=== PATIENT | male | born 1930 | race Asian ===

== ENCOUNTER 2017-05-09 17:43 | Emergency (ER) | payer OTHER ==
[2017-05-09 17:49] VITALS: BP 123/75; PULSE 82; TEMP 97.4; BMI 22.8
[2017-05-09] MEDS ORDERED: IBUPROFEN 400 MG TABLET (FP) PO ONE ×2 (18:10→18:16)
[2017-05-09] MEDS ORDERED: SULFAMETHOXAZOLE/TRIMETHOPRIM 800MG/160MG D.S. TABLET ONE (18:10)
[2017-05-09] MEDS ORDERED: SULFAMETHOXAZOLE/TRIMETHOPRIM 800MG/160MG D.S. TABLET PO ONE (18:15)
--- NOTE | 2017-05-09 18:15 | PDOC ---
History of Present Illness <Mariama Navarro - Last Filed: 05/09/17 18:11> - General History Source: Patient, Old Records Exam Limitations: No Limitations - History of Present Illness Initial Comments: 05/09/17 18:16 The patient is an 87 year old male, accompanied by son, with a past medical history of BPH who presents to the emergency department with a left buttox abcess. The patient states that he first noticed the abscess 4 days ago. The patient states that he has been unable to lie down comfortably secondary to his abscess. <Elvis Barboza - Last Filed: 05/09/17 18:17> - General Chief Complaint: Abscess Boil Stated Complaint: ABSCESS TO BUTTOCK Time Seen by Provider: 05/09/17 17:51 Past History - Past Medical History Anemia: No Asthma: No Cancer: No Cardiac Disorders: No CVA: No COPD: No CHF: No Dementia: No Diabetes: No GI Disorders: No Disorders: Yes (BPH) HTN: No Hypercholesterolemia: No Liver Disease: No Seizures: No Thyroid Disease: No - Surgical History Abdominal Surgery: No Appendectomy: No Cardiac Surgery: No Cholecystectomy: No Lung Surgery: No Neurologic Surgery: No Orthopedic Surgery: Yes (Bilateral knee replacement) - Immunization History Immunization Up to Date: No - Suicide/Smoking/Psychosocial Hx Smoking History: Never smoked Have you smoked in the past 12 months: No Information on smoking cessation initiated: No Hx Alcohol Use: No Drug/Substance Use Hx: No Substance Use Type: None Hx Substance Use Treatment: No <Mariama Navarro - Last Filed: 05/09/17 18:11> <Elvis Barboza - Last Filed: 05/09/17 18:17> - Past Medical History Allergies/Adverse Reactions: Allergies Allergy/AdvReac Type Severity Reaction Status Date / Time No Known Allergies Allergy Verified 05/09/17 17:45 Home Medications: Ambulatory Orders Dutasteride [Avodart] 0.5 mg PO HS 05/09/17 Sulfamethoxazole/Trimethoprim [Bactrim Ds Tablet] 1 each PO BID #14 tablet 05/09 Review of Systems - Review of Systems Able to Perform ROS?: Yes Comments:: 05/09/17 18:16 GENERAL/CONSTITUTIONAL: No fever or chills. No weakness. HEAD, EYES, EARS, NOSE AND THROAT: No change in vision. No ear pain or discharge. No sore throat. GASTROINTESTINAL: No nausea, vomiting, diarrhea or constipation. GENITOURINARY: No dysuria, frequency, or change in urination. CARDIOVASCULAR: No chest pain or shortness of breath. RESPIRATORY: No cough, wheezing, or hemoptysis. MUSCULOSKELETAL: No joint or muscle swelling or pain. No neck or back pain. SKIN: No rash NEUROLOGIC: No headache, vertigo, loss of consciousness, or change in strength/ sensation. ENDOCRINE: No increased thirst. No abnormal weight change. HEMATOLOGIC/LYMPHATIC: No anemia, easy bleeding, or history of blood clots. ALLERGIC/IMMUNOLOGIC: (+) No hives or skin allergy. Left buttox abcess <Elvis Barboza - Last Filed: 05/09/17 18:17> *Physical Exam - Vital Signs Last Vital Signs Temp Pulse Resp BP Pulse Ox 97.4 F L 82 18 123/75 97 05/09/17 17:44 05/09/17 17:44 05/09/17 17:44 05/09/17 17:44 05/09/17 17:44 <Mariama Navarro - Last Filed: 05/09/17 18:11> - Vital Signs Last Vital Signs Temp Pulse Resp BP Pulse Ox 97.4 F L 82 18 123/75 97 05/09/17 17:44 05/09/17 17:44 05/09/17 17:44 05/09/17 17:44 05/09/17 17:44 - Physical Exam Comments: 05/09/17 18:17 GENERAL: Awake, alert, and fully oriented, in no acute distress HEAD: No signs of trauma EYES: PERRLA, EOMI, sclera anicteric, conjunctiva clear ENT: Auricles normal inspection, nares patent, Moist mucosa NECK: Normal ROM, supple, no lymphadenopathy, JVD, or masses LUNGS: Breath sounds equal, clear to auscultation bilaterally. No wheezes, and no crackles HEART: Regular rate and rhythm, normal S1 and S2, no murmurs, rubs or gallops ABDOMEN: Soft, nontender, normoactive bowel sounds. No guarding, no rebound. No masses EXTREMITIES: Normal range of motion, no edema. No clubbing or cyanosis. No cords, erythema, or tenderness NEUROLOGICAL: Normal speech SKIN: (+) Warm, Dry, normal turgor, Left buttox 1cm x 2cm induration central fluctuance with no surrounding erythema. No rectal pain or tenderness. <Elvis Barboza - Last Filed: 05/09/17 18:17> Medical Decision Making - Medical Decision Making 05/09/17 18:11 87 yo male with h/o BPH here wtih c/o left buttock boil. started 4 days ago. painful. no n/v no f/c. no drainage. no h/o similar. on exam awake alert lungs clear heart rrr no mrg. left buttock with area induration central fluctuance, no surrounding erythema. plan I & D absces. pack. bactrim DS home. <Mariama Navarro - Last Filed: 05/09/17 18:11> *DC/Admit/Observation/Transfer <Mariama Navarro - Last Filed: 05/09/17 18:11> - Attestations Scribe Attestion: 05/09/17 18:17 Documentation prepared by Elvis Barboza, acting as medical orderly for Mariama Navarro MD. <Elvis Barboza - Last Filed: 05/09/17 18:17> Diagnosis at time of Disposition: Abscess - Discharge Dispostion Disposition: HOME Condition at time of disposition: Improved - Prescriptions Prescriptions: Sulfamethoxazole/Trimethoprim [Bactrim Ds Tablet] 1 each PO BID #14 tablet - Referrals Referrals: Henrique Murphy [Primary Care Provider] - - Patient Instructions Printed Discharge Instructions: DI for Incision and Drainage of a Skin Abscess Additional Instructions: take bactrim twice daily x 7 days. soak in tub twice daily. return Thursday for wound evaluation . return sooner for fever, chills or any concerns. you can take ibuprofen 400 mg every 8 hours as needed for pain.
== END 2017-05-09 18:35 | disposition home or self-care (01) ==
LOC: FER 17:43
DX: L02.31 Cutaneous abscess of buttock (principal); N40.0 Benign prostatic hyperplasia without lower urinary tract symptoms
CPT/HCPCS: 99283-25

== ENCOUNTER 2017-05-11 17:59 | Emergency (ER) | payer OTHER ==
[2017-05-11 18:05] VITALS: BP 118/73; PULSE 66; TEMP 98.1; BMI 22.8
--- NOTE | 2017-05-11 18:08 | PDOC ---
Suture Removal/Wound Check HPI - History of Present Illness Chief Complaint: Revisit,Wound Recheck Stated Complaint: WOUND CHECK S/P I&D History Source: Yes: Patient, Family Exam Limitations: Yes: No Limitations - Previous ED Treatment Type of procedure performed on last visit: Yes: I&D of Abscess - Onset of Previous Treatment Comment:: 05/11/17 18:06 s/p[ i & D abscess 2 days ago. on bactrim. doing well. no f/c has been soaking. bandage switched yesterday. Past History - Past Medical History Allergies/Adverse Reactions: Allergies Allergy/AdvReac Type Severity Reaction Status Date / Time No Known Allergies Allergy Verified 05/11/17 18:02 Home Medications: Ambulatory Orders Dutasteride [Avodart] 0.5 mg PO HS 05/09/17 Sulfamethoxazole/Trimethoprim [Bactrim Ds Tablet] 1 each PO BID #14 tablet 05/09 Anemia: No Asthma: No Cancer: No Cardiac Disorders: No CVA: No COPD: No CHF: No Dementia: No Diabetes: No GI Disorders: No Disorders: Yes (BPH) HTN: No Hypercholesterolemia: No Liver Disease: No Seizures: No Thyroid Disease: No - Surgical History Abdominal Surgery: No Appendectomy: No Cardiac Surgery: No Cholecystectomy: No Lung Surgery: No Neurologic Surgery: No Orthopedic Surgery: Yes (Bilateral knee replacement) - Immunization History Immunization Up to Date: No - Suicide/Smoking/Psychosocial Hx Smoking History: Never smoked Have you smoked in the past 12 months: No Information on smoking cessation initiated: No Hx Alcohol Use: No Drug/Substance Use Hx: No Substance Use Type: None Hx Substance Use Treatment: No Suture Removal/Wound Check PE - Physical Exam Comments: 05/11/17 18:07 left buttock abscess smaller, no active drainage. no surrounding erythema. overall improved. *DC/Admit/Observation/Transfer Diagnosis at time of Disposition: Admission for wound check of abscess - Discharge Dispostion Disposition: HOME Condition at time of disposition: Improved - Referrals Referrals: Henrique Murphy [Primary Care Provider] - - Patient Instructions Printed Discharge Instructions: DI for Skin Abscess Additional Instructions: keep soaking in tub twice daily. continue antiobiotics until gone. you should follow upwith your primary doctor this week. call to schedule. return for any fever, vomiting. spreading redness. or any concerns.
== END 2017-05-11 18:16 | disposition home or self-care (01) ==
LOC: FER 17:59
DX: Z48.02 Encounter for removal of sutures (principal)
CPT/HCPCS: 99281-25